=== PATIENT | male | born 1955 | race Caucasian/White ===

== ENCOUNTER 2021-06-16 05:11 | Emergency (ER) | payer MEDICARE, OTHER ==
[2021-06-16 05:49] LABS: BASOPHIL 0.6 % (0-2); EOSINOPHIL 1.7 % (0-7); HCT 43.5 % (42.0-52.0); HGB 15.2 g/dl (13.2-18.0); LYMPHOCYTE 24.7 % (15-48); MCH 32.5 pg (25.0-31.0); MCHC 34.9 g/dL (32.0-36.0); MCV 92.9 fL (78.0-100.0); MONOCYTE 11.6 % (0-12); MPV 8.8 fL (6.0-9.5); NEUTROPHIL 61.2 % (41-80); NRBC 0; PLT 203 K/uL (150-400); RBC 4.68 M/uL (4.70-6.00); RDW 13.1 % (11.5-14.0); WBC 8.5 K/uL (4.0-10.5)
[2021-06-16 06:05] LABS: ALBUMIN 4.2 g/dL (3.4-5.0); BILIRUBIN - TOTAL 0.5 mg/dL (0.2-1.0); BUN/CREAT RATIO (CALC) 19.7 RATIO; CREATININE 0.76 mg/dL (0.67-1.17); GLOBULIN (CALCULATION) 3.1 g/dL; POTASSIUM 3.9 mmol/L (3.5-5.1); TOTAL PROTEIN 7.3 g/dL (6.4-8.2)
[2021-06-16 06:09] LABS: INR 1.02 (0.9-1.2); PROTHROMBIN TIME 12.8 SECONDS (11.8-13.4)
[2021-06-16 06:11] LABS: D-DIMER 0.34 ug/mLFEU (0.00-0.41)
[2021-06-16 08:00] LABS: MAGNESIUM 1.8 mg/dL (1.8-2.4); PHOSPHORUS 3.4 mg/dL (2.6-4.7)
== END 2021-06-16 11:00 | disposition other institution (70) ==
LOC: FER 05:11
PROVIDERS: Emergency Medicine
DX: I21.4 Non-ST elevation (NSTEMI) myocardial infarction (principal); I20.0 Unstable angina; E11.9 Type 2 diabetes mellitus without complications; Z79.84 Long term (current) use of oral hypoglycemic drugs; Z20.822 Contact with and (suspected) exposure to COVID-19
CPT/HCPCS: 36415; 71045; 80053; 83735; 83880; 84100; 84443; 84484; 85025; 85379; 85610; 85730; 93005; J1644; J2405; J7030; U0002